=== PATIENT | female | born 2005 | race Caucasian/White ===

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

== ENCOUNTER 2025-03-25 13:45 | Emergency (ER) | payer OTHER, SELFPAY ==
[2025-03-25 14:11] VITALS: BP 140/94; PULSE 62; RESP 17; TEMP 36.6; O2SAT 100; BMI 23.8
[2025-03-25] MEDS: ONDANSETRON 4 MG/2 ML INJ IV (14:36)
[2025-03-25] MEDS: SODIUM CHLORIDE 0.9% 1,000 ML 1000 ML IV ×2 (14:36→15:19)
[2025-03-25 14:41] LABS: Add Manual Diff / Slide Review NO; Basophils Absolute Auto 0 /uL (0-100); Basophils Percent Auto 0.3 % (0-2); Eosinophils Absolute Auto 0 /uL (0-450); Hematocrit 43.4 % (36-46); Lymphocytes Absolute Auto 1400 /uL (1100-4500); Lymphocytes Percent Auto 9.4 % (25-40); Mean Corpuscular HGB Conc 34.5 % (30-36); Mean Corpuscular Hemoglobin 32.1 PG (26-34); Mean Corpuscular Volume 92.9 fL (80-100); Monocytes Absolute Auto 100 /uL (0-900); Neutrophils Absolute Auto 13500 /uL (1500-7000); Neutrophils Percent Auto 89.3 % (50-75); Platelet Count 307 X10^3/uL (150-400); Red Blood Cell Count 4.67 X10^6/uL (4.0-5.2); Red Cell Distribution Width 12.6 % (11.6-14.8); White Blood Cell Count 15.1 X10^3/uL (4.5-11.0)
[2025-03-25 14:55] LABS: Alanine Aminotransferase 21 IU/L (<35); Albumin 5.1 g/dL (3.5-5.0); Albumin Globulin Ratio 1.5 (1.0-2.8); Alkaline Phosphatase 73 U/L (38-126); Aspartate Aminotransferase 29 IU/L (14-36); BUN Creatinine Ratio 15.9 (6-22); Bilirubin Total 0.8 mg/dL (0.2-1.3); Blood Urea Nitrogen 11 mg/dL (7-17); Calcium 9.7 mg/dL (8.4-10.2); Carbon Dioxide 21 mmol/L (22-32); Chloride 105 mmol/L (98-107); Estimated Glomerular Filt Rate > 60 mL/min (>60); Globulin 3.3 g/dL (1.7-4.1); Glucose 107 mg/dL (70-99); HEMOLYSIS < 15 (0-50); Lipase 72 U/L (23-300); Potassium 3.9 mmol/L (3.4-5.1); Sodium 141 mmol/L (137-145); Total Protein 8.4 g/dL (6.3-8.2)
[2025-03-25 15:19] LABS: Bacteria Urine None Seen; RBC Urine 0-1/HPF (0-5/HPF); Squamous Epithelial Cell Urine 1-5 /HPF (0-5/HPF); Urine Volume 10mL (spun); WBC Urine 1-5/HPF (0-5/HPF)
--- NOTE | 2025-03-25 15:19 | PC.NURSE ---
Patient reports improvement in nausea, tolerating ice chips and is sipping jinny rikki at this time.
--- NOTE | 2025-03-25 17:27 | ED.NAVMDI ---
HPI - Nausea/Vomiting/Diarrhea General Chief complaint: Nausea/Vomiting/Diarrhea Stated complaint: Vomiting cant hold anything down Time Seen by Provider: 03/25/25 14:00 Source: patient Mode of arrival: Ambulatory History of Present Illness HPI Narrative: Otherwise healthy 20-year-old woman with profuse vomiting since 4:00 a.m., awoke her from sleep. Unable to keep liquids down at all. She is not having any diarrhea, she is having hot flashes with the episodes of vomiting. She was wondering if she had food poisoning. She currently has an IUD and does not believe she is . Has never had similar findings does not have significant abdominal pain, coughing, headache Related Data Home Medications ?Medication ?Instructions ?Recorded ?Confirmed magnesium hydroxide 400 mg/5 mL 5 ml PO BEDTIME PRN Constipation 04/25/19 04/25/19 oral suspension ([place] Milk of Magnesia) ranitidine HCl 75 mg tablet 150 mg PO BID 04/25/19 04/25/19 (Zantac) sulfamethoxazole 800 1 tab PO BID 04/25/19 04/25/19 mg-trimethoprim 160 mg tablet (Bactrim DS) tretinoin (emollient) 0.02 % 04/25/19 topical cream Previous Rx's ?Medication ?Instructions ?Recorded ondansetron 4 mg disintegrating 4 mg PO Q6H PRN nausea and 03/21/19 tablet vomiting #20 tabs ondansetron 4 mg disintegrating 4 mg PO Q8H PRN nausea and 03/25/25 tablet vomiting #14 tabs Allergies Allergy/AdvReac Type Severity Reaction Status Date / Time No Known Drug Allergies Allergy Verified 03/25/25 14:11 Review of Systems Review of Systems Narrative: Pertinent positive and negative findings as per HPI Patient History Medical History Diarrhea Constipation GERD (gastroesophageal reflux disease) Nausea Acne Surgical History No pertinent past surgical history Smoking Status: Never smoker alcohol intake frequency: other Exam Initial Vital Signs Initial Vital Signs: Vital Signs Temperature 97.9 F 03/25/25 14:11 Pulse Rate 62 03/25/25 14:11 Respiratory Rate 17 03/25/25 14:11 Blood Pressure 140/94 H 03/25/25 14:11 Pulse Oximetry 100 03/25/25 14:11 Oxygen Delivery Method Room Air 03/25/25 14:11 General: Dehydrated appearing, appears unwell but is, in no acute distress. Able to give a complete and coherent history. HEENT: Dry mucous membranes, normal sclera with reactive pupils, Respiratory: Lungs are clear to auscultation, no wheezing no rales no rhonchi. Full and symmetrical air movement Cardiac: Regular rate and rhythm no murmurs no bruits Abdomen: Soft, nontender, no rebound or guarding, no flank pain Skin: Warm and dry, no rashes Neurologic: Grossly neurologically intact with no obvious asymmetries or abnormalities Extremities: No trauma, well perfused Psych: Cooperative, appropriate insight and affect Course Orders Ordered: ED Orders 03/25/25 14:15 Urine Microscopic Stat 03/25/25 14:30 Complete Blood Count AUTO DIFF Stat Comprehensive Metabolic Panel Stat Lipase Stat Discontinued Medications Sodium Chloride (Normal Saline 0.9%) 1,000 mls @ 1,000 mls/hr IV BOLUS ONE Stop: 03/25/25 15:13 Last Infusion: 03/25/25 15:15 Dose: Infused Documented By: Admin: 03/25/25 14:36 Dose: 1,000 mls/hr Documented By: IRAIDA Sodium Chloride (Normal Saline 0.9%) 1,000 mls @ 1,000 mls/hr IV BOLUS ONE Stop: 03/25/25 16:15 Last Infusion: 03/25/25 16:14 Dose: Infused Documented By: Admin: 03/25/25 15:19 Dose: 1,000 mls/hr Documented By: IRAIDA Ondansetron HCl (Ondansetron 4 Mg/2 Ml Inj) 4 mg IV NOW ONE Stop: 03/25/25 14:15 Last Admin: 03/25/25 14:36 Dose: 4 mg Documented By: IRAIDA Vital Signs Vital signs: Vital Signs - 8 hr 03/25/25 14:11 Temperature 97.9 F Pulse Rate 62 Respiratory Rate 17 Blood Pressure 140/94 H Pulse Oximetry 100 Oxygen Delivery Method Room Air MDM - Nausea/Vomiting/Diarrhea Lab Data 03/25/25 14:30 03/25/25 14:30 Labs: Lab Results 03/25/25 03/25/25 Range/Units 14:15 14:30 WBC 15.1 H (4.5-11.0) X10^3/uL RBC 4.67 (4.0-5.2) X10^6/uL Hgb 15.0 (12.0-16.0) g/dL Hct 43.4 (36-46) % MCV 92.9 (80-100) fL MCH 32.1 (26-34) PG MCHC 34.5 (30-36) % RDW 12.6 (11.6-14.8) % Plt Count 307 (150-400) X10^3/uL Neut % (Auto) 89.3 H (50-75) % Lymph % (Auto) 9.4 L (25-40) % [place] % (Auto) 1.0 L (3-14) % Eos % (Auto) 0.0 L (2-4) % Baso % (Auto) 0.3 (0-2) % Neut # (Auto) 27935 H (8885-4947) /uL Lymph # (Auto) 1400 (0435-9380) /uL [place] # (Auto) 100 (0-900) /uL Eos # (Auto) 0 (0-450) /uL Baso # (Auto) 0 (0-100) /uL Sodium 141 (137-145) mmol/L Potassium 3.9 (3.4-5.1) mmol/L Chloride 105 (98-107) mmol/L Carbon Dioxide 21 L (22-32) mmol/L BUN 11 (7-17) mg/dL Creatinine 0.69 (0.52-1.04) mg/dL Estimated GFR > 60 (>60) mL/min BUN/Creatinine Ratio 15.9 (6-22) Glucose 107 H (70-99) mg/dL Calcium 9.7 (8.4-10.2) mg/dL Total Bilirubin 0.8 (0.2-1.3) mg/dL AST 29 (14-36) IU/L ALT 21 (<35) IU/L Alkaline Phosphatase 73 (38-126) U/L Total Protein 8.4 H (6.3-8.2) g/dL Albumin 5.1 H (3.5-5.0) g/dL Globulin 3.3 (1.7-4.1) g/dL Albumin/Globulin Ratio 1.5 (1.0-2.8) Lipase 72 (23-300) U/L Urine RBC 0-1/hpf (0-5/HPF) Urine WBC 1-5/hpf (0-5/HPF) Ur Squamous Epith Cells 1-5 /hpf (0-5/HPF) Urine Bacteria None seen (None) Vol Urine Centrifuged 10ml (spun) Point of Care Testing Test Results Negative Urine Dip Bedside Urine Glucose Negative Bedside Urine Bilirubin - Negative Bedside Urine Ketone +++ 80 Urine Specific [place] 1.01 Bedside Urine Occult Blood - Negative Bedside Urine pH 8.0 Bedside Urine Protein + 30 Bedside Urine Urobilinogen - Negative Bedside Urine Nitrite - Negative Bedside Urine Leukocytes - Negative Esterase MDM Narrative Medical decision making narrative: Otherwise healthy 20-year-old woman with profuse vomiting for the last 12 hours, moderate dehydration, no significant abdominal pain or diarrhea. Labs do not show severe renal dysfunction or electrolyte abnormalities. No significant leukocytosis to suggest infection. She is not and does not have a urinary tract infection. She was given 2 L of fluid, Zofran and was feeling significantly better, she has spontaneously voided and is tolerating jinny rikki. No evidence of sepsis, intra-abdominal obstruction or need for surgical consultation. Source of the acute onset of her vomiting isn't entirely clear, maybe food related could be viral related. Findings reviewed with the patient. She is feeling much better and she is safe for discharge home Discharge Plan Departure Patient Disposition: Home Clinical Impression: Vomiting, Acute dehydration Instructions: DI for Dehydration -- Adult, DI for Vomiting -- Adult Activity Restrictions/Additional Instructions: Thank you for coming in today I am glad you are feeling better. Your blood work was quite reassuring I did not see any evidence of acute infection or anything that would require hospitalization I have given you a prescription for ondansetron, this is a nausea medication that we gave you in the emergency department you can fill it if you would like to Please make sure that you are maintaining hydration, electrolyte solution such as Gatorade or liquid IV or actually helpful. If you find that you are getting worse or develop any new symptoms, please feel free to return to the emergency department for further evaluation. Prescriptions: New ondansetron 4 mg tablet,disintegrating 4 mg PO Q8H PRN (Reason: nausea and vomiting) Qty: 14 0RF No Action ondansetron 4 mg tablet,disintegrating 4 mg PO Q6H PRN (Reason: nausea and vomiting) Qty: 20 0RF sulfamethoxazole-trimethoprim [Bactrim DS] 800-160 mg Tablet 1 tab PO BID magnesium hydroxide [[place] Milk of Magnesia] 400 mg/5 mL Suspension 5 ml PO BEDTIME PRN (Reason: Constipation) ranitidine HCl [Zantac 75] 75 mg tablet 150 mg PO BID tretinoin (emollient) 0.02 % Cream Stand Alone Forms: Patient Portal/API
[2025-03-25 17:57] VITALS: BP 123/71; PULSE 70; RESP 16; O2SAT 100
== END 2025-03-25 17:57 | disposition home or self-care (01) ==
PROVIDERS: Emergency Provider Emergency Medicine
DX: R11.10 Vomiting, unspecified (principal); E86.0 Dehydration
CPT/HCPCS: 36415; 80053; 81003; 81015; 81025; 83690; 85025; 96361; 96374; 99284; J2405